=== PATIENT | female | born 1955 | race Caucasian/White ===

== ENCOUNTER 2021-03-30 00:34 | Observation (INO) ==
[2021-03-30] MEDS ORDERED: Acetaminophen 325 MG TABLET PO PRN (04:24)
[2021-03-30] MEDS ORDERED: Naloxone 0.4 MG/ML INJ IVP PRN (04:24)
[2021-03-30] MEDS ORDERED: Ondansetron 4 MG/2 ML VIAL IVP PRN (04:24)
[2021-03-30] MEDS ORDERED: Nitroglycerin 1 INCH/GM PACKET TP ONE (04:27)
[2021-03-30] MEDS: *HR* Heparin 5,000 UNIT/ML VIAL SQ SCH ×2 (05:12→17:04)
[2021-03-30] MEDS: Topiramate 100 MG TABLET PO SCH (08:00)
[2021-03-30] MEDS: rOPINIRole 1 MG TABLET PO SCH (08:00)
[2021-03-30] MEDS: Aspirin 81 MG TAB.CHEW PO SCH (08:00)
[2021-03-30 10:36] LABS: Basophils % 0.4 %; Eosinophils # 0.1 K/mcL (0.0-0.6); Hematocrit 39.2 % (35.3-44.9); Hemoglobin 12.6 g/dL (11.5-15.4); Immature Granulocytes % 0.6 % (0-4); Lymphocytes # 1.6 K/mcL (0.6-4.6); Lymphocytes % 32.9 %; Mean Corpuscular HGB Conc 32.1 g/dL (31.6-35.5); Mean Corpuscular Hemoglobin 30.5 pg (28.0-33.3); Mean Corpuscular Volume 94.9 fL (83.0-100.0); Mean Platelet Volume 11.4 fL (9.4-12.4); Monocytes # 0.4 K/mcL (0.0-1.3); Monocytes % 8.5 %; Neutrophils # 2.8 K/mcL (1.6-8.9); Platelet Count 172 K/mcL (140-400); Red Blood Count 4.13 M/mcL (3.82-4.97); Red Cell Distribution Width 13.4 % (11.5-14.5); Segmented Neutrophils % 55.6 %
[2021-03-30 10:55] LABS: Alanine Aminotransferase 25 Units/L (7-52); Albumin 3.7 g/dL (3.5-5.7); Albumin/Globulin Ratio 1.6 (1.1-2.2); Alkaline Phosphatase 61 Units/L (34-104); Aspartate Amino Transferase 20 Units/L (13-39); BUN/Creatinine Ratio 17 (6-26); Bilirubin,Total 0.7 mg/dL (0.3-1.0); Blood Urea Nitrogen 15 mg/dL (8-23); Calcium 9.6 mg/dL (8.6-10.3); Carbon Dioxide 26 mEq/L (23-29); Chloride 110 mEq/L (98-107); Globulin 2.3 g/dL (2.4-3.5); Glucose 104 mg/dL (70-105); Magnesium 1.8 mg/dL (1.6-2.6); Osmolality,Calculated 295 (280-300); Phosphorous 4.8 mg/dL (2.7-4.5); Potassium 3.8 mEq/L (3.5-5.1); Sodium 142 mEq/L (136-145); eGFR For African Americans > 60 (> 60); eGFR For Non-African Americans > 60 (> 60)
[2021-03-30] MEDS ORDERED: traZODone 50 MG TABLET PO SCH (21:00)
[2021-03-31 05:15] LABS: Hematocrit 39.3 % (35.3-44.9); Hemoglobin 12.4 g/dL (11.5-15.4)
[2021-03-31 05:23] LABS: Chol/HDL Ratio 4.2 (0-4.9)
[2021-03-31 05:26] LABS: BUN/Creatinine Ratio 24 (6-26); Blood Urea Nitrogen 20 mg/dL (8-23); Calcium 9.2 mg/dL (8.6-10.3); Carbon Dioxide 25 mEq/L (23-29); Chloride 112 mEq/L (98-107); Glucose 125 mg/dL (70-105); Osmolality,Calculated 300 (280-300); Potassium 3.8 mEq/L (3.5-5.1); Sodium 143 mEq/L (136-145); eGFR For African Americans > 60 (> 60); eGFR For Non-African Americans > 60 (> 60)
[2021-03-31] MEDS: *HR* Heparin 5,000 UNIT/ML VIAL SQ SCH (05:26)
[2021-03-31 09:01] LABS: Estimated Average Glucose 111 mg/dl; Hemoglobin A1C 5.5 %
[2021-03-31] MEDS: Topiramate 100 MG TABLET PO SCH (09:10)
[2021-03-31] MEDS: rOPINIRole 1 MG TABLET PO SCH (09:10)
[2021-03-31] MEDS: Aspirin 81 MG TAB.CHEW PO SCH (09:10)
[2021-03-31 12:02] VITALS: TEMP 97.6
[2021-03-31] MEDS ORDERED: *HR* Midazolam HCl 2 MG/2 ML VIAL ONE (13:36)
[2021-03-31] MEDS ORDERED: 0.9 % Sodium Chloride 2,000 ML ONE (13:36)
[2021-03-31] MEDS ORDERED: *HR* FentaNYL (PF) 100 MCG/2 ML VIAL ONE (13:36)
[2021-03-31] MEDS ORDERED: *HR* Heparin 10,000 UNIT/10 ML VIAL ONE (13:36)
[2021-03-31] MEDS ORDERED: Heparin 1,000 UNITS/500 mL 500 ML ONE (13:36)
[2021-03-31] MEDS ORDERED: ISOVUE-370 200 ML INFUS..BTL ONE (13:37)
[2021-03-31] MEDS ORDERED: Nitroglycerin 1,000 MCG/5 ML VIAL IV ONE (13:37)
[2021-03-31 16:40] VITALS: BP 138/85; PULSE 54; O2SAT 95
== END 2021-03-31 18:50 | disposition home or self-care (01) ==
LOC: 3BNU → SUATTDRO 02:19
PROVIDERS: ADMIT Internal Medicine; ATTEND Student in an Organized Health Care Education/Training Program